=== PATIENT | female | born 1950 | race Caucasian/White ===

== ENCOUNTER 2018-08-26 10:29 | Outpatient (CLI) | payer MEDICARE, OTHER, SELFPAY ==
[2018-08-26 13:01] LABS: ALT 23 U/L (12-78); AST 19 U/L (15-37); Albumin 3.8 g/dL (3.4-5.0); Alkaline Phosphatase 79 U/L (46-116); Anion Gap 6.6 mmol/L (3-11); BUN 19 mg/dL (7-18); Bilirubin, Total 0.7 mg/dL (0.2-1.0); CO2 28.4 mmol/L (21.0-32.0); CREATININE 0.85 mg/dL (0.55-1.02); Calcium 9.1 mg/dL (8.5-10.1); Chloride 103 mmol/L (98-107); Cholesterol 260 mg/dL (50-200); Glucose 96 mg/dL (70-100); HDL Cholesterol 74 mg/dL (40-60); LDL CHOLESTEROL 167 mg/dL (<100); Potassium 4.4 mmol/L (3.5-5.1); Sodium 138 mmol/L (136-145); TSH (W/Ref FT4) 1.05 uIU/mL (0.358-3.74); Total Protein 6.9 g/dL (6.4-8.2); Triglyceride 123 mg/dL (30-150)
== END 2018-08-26 10:49 ==
PROVIDERS: PCP Family Medicine; Visit Provider Family Medicine
DX: E03.9 Hypothyroidism, unspecified (principal); R53.83 Other fatigue; G89.4 Chronic pain syndrome
CPT/HCPCS: 36415; 80053; 80061; 83721; 84443

== ENCOUNTER 2020-02-24 15:41 | Outpatient (REF) | payer MEDICARE, OTHER, SELFPAY ==
[2020-02-24 17:09] LABS: Bilirubin Negative (Negative); Blood Moderate (Negative); Clarity Clear (Clear); Glucose Negative (Negative); Ketones Negative (Negative); Leukocyte Esterase Negative (Negative); Nitrite Negative (Negative); Specific Gravity >= 1.030 (1.005-1.025); Urobilinogen 0.2 EU/dL (Up TO 0.2); pH 5.5 (5-8)
[2020-02-24 17:49] LABS: Bacteria Negative HPF (Negative); C & S Indicated? C&S Done As Ordered; Casts Negative LPF (Negative); Crystals Mod Calcium Oxalate HPF (Negative); Epithelial Cells Negative HPF (Negative); Mucus Negative (Negative); RBC 20-50 HPF (0-2)
== END 2020-02-24 16:01 ==
LOC: LBN 15:41
PROVIDERS: PCP Family Medicine; Visit Provider Family Medicine
DX: R31.9 Hematuria, unspecified (principal)
CPT/HCPCS: 81003; 81015; 87086

== ENCOUNTER 2020-03-02 00:55 | Outpatient (CLI) | payer MEDICARE, OTHER, SELFPAY ==
--- NOTE | 2020-03-02 09:26 | DI.US_ITS ---
EXAM: US RENAL CLINICAL HISTORY: hematuria,R31.9 TECHNIQUE: Ultrasound performed using standard protocol. COMPARISON: US SOFT TISSUE UPPER/LOWER EXT US from 01/08/2017 FINDINGS: Kidneys are normal in size and shape. There is no evidence of hydronephrosis. There are a few nonsp ecific echogenic foci seen in both kidneys, however these are not confirmed as calculi, no twinkle ar tifact seen. Urinary bladder shows pre and postvoid volume 43 cc and 2 cc respectively. There is an echogenic foc us adjacent to the right ureteral orifice, right ureteral jet was observed as is the left ureteral je t. The echogenic focus appears to lie in the bladder wall, nonobstructing distal ureteral stone not entirely excluded but this may represent a bladder wall calcification or phlebolith. IMPRESSION: no evidence of urinary tract obstruction. No convincing renal calculi by ultrasound criteria. Echogenic focus adjacent to right ureterovesical junction, uncertain etiology, CT urogram suggested t o evaluate this finding and rule out nonobstructing ureteral calculus, particularly considering the h istory of hematuria. DATA REPOSITORY:
--- NOTE | 2020-03-02 09:32 | DI.RAD_ITS ---
EXAM: XR CHEST 2V PA LATERAL CLINICAL HISTORY: cough,R05 TECHNIQUE: COMPARISON: CR CHEST 2 VIEWS PA,LAT from 12/10/2010 FINDINGS: Right humeral head prosthesis noted. Heart is not enlarged. The lungs appear clear. There may be mild pulmonary hyperinflation. No pleural effusion seen. IMPRESSION: No evidence of acute process.
== END 2020-03-02 01:15 ==
PROVIDERS: PCP Family Medicine; Visit Provider Family Medicine
DX: R05 Cough (principal); R31.9 Hematuria, unspecified; N32.89 Other specified disorders of bladder
CPT/HCPCS: 76770; 71046

== ENCOUNTER → 2020-03-30 10:36 | Outpatient (BNVA) | payer MEDICARE, OTHER, SELFPAY | PROVIDERS: PCP Family Medicine; Referring Provider Family Medicine; Visit Provider Nurse Practitioner Gerontology | DX: R31.9 Hematuria, unspecified (principal); I10 Essential (primary) hypertension | CPT/HCPCS: 81003; 99203; 99214 ==

== ENCOUNTER 2020-04-18 01:44 | Outpatient (CLI) | payer MEDICARE, OTHER, SELFPAY ==
[2020-04-18 13:51] LABS: ALT 23 U/L (14-59); AST 25 U/L (15-37); Albumin 3.9 g/dL (3.4-5.0); Alkaline Phosphatase 75 U/L (46-116); Anion Gap 7.2 mmol/L (3-11); BUN 21 mg/dL (7-18); Bilirubin, Total 0.7 mg/dL (0.2-1.0); CO2 28.8 mmol/L (21.0-32.0); CREATININE 0.91 mg/dL (0.55-1.02); Calcium 9.5 mg/dL (8.5-10.1); Calculated LDL 134 mg/dL (<100); Chloride 100 mmol/L (98-107); Cholesterol 235 mg/dL (<200); Glucose 92 mg/dL (74-106); HDL Cholesterol 87 mg/dL (40-60); Sodium 136 mmol/L (136-145); Total Protein 7.2 g/dL (6.4-8.2); Triglyceride 74 mg/dL (<150)
[2020-04-18 13:59] LABS: TSH (W/Ref FT4) 6.99 uIU/mL (0.36-3.74)
[2020-04-18] MEDS: Normal Saline - Diluent 50 ML VIAL IV (14:15)
[2020-04-18] MEDS: Omnipaque 350 MG/ML 100 ML BTL IJ (14:15)
[2020-04-18 14:17] LABS: FREE T4 1.13 ng/dL (0.76-1.46)
--- NOTE | 2020-04-18 14:23 | DI.CT_ITS ---
EXAM: CT ABDOMEN PELVIS WO/W CLINICAL HISTORY: gross hematuria, R31.9 TECHNIQUE: Imaging Protocol: Axial computed tomography images with coronal and sagittal reformatted images were created and reviewed CONTRAST MATERIAL: Intravenous: Omnipaque 350 Contrast volume:structured data in ml Oral: yes / no COMPARISON: CT RENAL COLIC WO CONTRAST from 10/22/2011 CT ABD PELVIS WO CONTRAST from 11/08/2011 FINDINGS: ABDOMEN: Lung Bases: There is diffuse thickening of the distal esophagus and a small hiatal hernia. There is scarring in the right lung base. Liver: Normal density. There is a 0.8 cm round hypodensity in the subcapsular region of the right lob e of the liver. It is too small for further characterization but may represent a small cyst. Portal, Superior Mesenteric, and Splenic Veins: Unremarkable. Gallbladder and Biliary Tract: Cholelithiasis. No biliary ductal dilatation. Pancreas: Normal density, no abnormal calcifications or inflammatory process. Spleen: Normal. Adrenals: No masses seen. Kidneys: Normal size, contour and axis. There is a 3 mm nonobstructing stone in the lower pole of the right kidney. There are three 2 mm nonobstructing stones in the left kidney. No masses seen. Abdominal Aorta: Abdominal portion non-dilated. Atherosclerosis. Bowel: No obstruction or bowel wall thickening. Appendix is unremarkable. Colonic diverticulosis is p resent but no evidence of acute diverticulitis. Peritoneal Cavity: No ascites, collection or mesenteric inflammatory response. Lymph Nodes: Within normal limits. Bones: Degenerative changes are seen in the spine. Soft Tissues: Unremarkable. PELVIS: Bladder: Symmetric distention, no gross wall thickening. Reproductive Organs: Unremarkable as visualized. Lymph Nodes: Within normal limits. Bones: Degenerative changes are seen in the spine. IMPRESSION: 1. Bilateral nephrolithiasis. No hydronephrosis. 2. Cholelithiasis. No biliary ductal dilatation. 3. Colonic diverticulosis but no evidence of acute diverticulitis. 4. Diffuse thickening of the distal esophagus with a small hiatal hernia. Differential should includ e infectious or inflammatory causes. Neoplasm cannot be excluded. Further imaging may be warranted RADIATION DOSE DELIVERED: Total DLP Total DLP DATA REPOSITORY: All CT scans at this facility are submitted to the National Radiology Data Registry (NRDR) Dose Index Registry (DIR) with the [employer] (A[employer]). RADIATION OPTIMIZATION: All CT scans at this facility use at least one of these dose optimization te chniques: automated exposure control; mA and/or kV adjustment per patient size (includes targeted exa ms where dose is matched to clinical indication); or iterative reconstruction.
[2020-04-18 14:24] LABS: ESR 15 mm/hr (0-30)
== END 2020-04-18 02:04 ==
PROVIDERS: PCP Family Medicine; Visit Provider Nurse Practitioner Gerontology
DX: R31.0 Gross hematuria (principal); K44.9 Diaphragmatic hernia without obstruction or gangrene; K22.8 Other specified diseases of esophagus; K80.20 Calculus of gallbladder without cholecystitis without obstruction; N20.0 Calculus of kidney; K57.32 Diverticulitis of large intestine without perforation or abscess without bleeding; I10 Essential (primary) hypertension
CPT/HCPCS: 80053; 80061; 85652; 74178; 84439; 84443; J3490

== ENCOUNTER → 2020-05-09 09:32 | Outpatient (BNVA) | payer MEDICARE, OTHER, SELFPAY | PROVIDERS: PCP Family Medicine; Referring Provider Family Medicine; Visit Provider Nurse Practitioner Gerontology | DX: N20.0 Calculus of kidney (principal) | CPT/HCPCS: 99213 ==

== ENCOUNTER 2021-03-05 10:38 | Outpatient (REF) | payer MEDICARE, OTHER, SELFPAY ==
[2021-03-05 13:58] LABS: ESR 34 mm/hr (0-30)
[2021-03-05 14:19] LABS: ALT 22 U/L (14-59); AST 21 U/L (15-37); Albumin 3.8 g/dL (3.4-5.0); Alkaline Phosphatase 77 U/L (46-116); BUN 32 mg/dL (7-18); Bilirubin, Total 0.6 mg/dL (0.2-1.0); CREATININE 0.9 mg/dL (0.55-1.02); Calcium 9.9 mg/dL (8.5-10.1); Chloride 102 mmol/L (98-107); Glucose 84 mg/dL (74-106); Potassium 4.2 mmol/L (3.5-5.1); Sodium 138 mmol/L (136-145); TSH (W/Ref FT4) 1.05 uIU/mL (0.36-3.74); Total Protein 7.1 g/dL (6.4-8.2)
== END 2021-03-05 10:39 | disposition home or self-care (01) ==
LOC: LBN 10:38
PROVIDERS: PCP Family Medicine; Visit Provider Family Medicine
DX: I10 Essential (primary) hypertension (principal); E03.9 Hypothyroidism, unspecified; M25.50 Pain in unspecified joint
CPT/HCPCS: 80053; 85652; 84443

== ENCOUNTER 2021-03-29 01:57 | Outpatient (CLI) | payer MEDICARE, OTHER, SELFPAY ==
--- NOTE | 2021-03-29 06:30 | DI.MAMMO_ITS ---
Exam(s) MAMMO SCREENING EXAM: MAMMO SCREENING CLINICAL HISTORY: screening,Z12.39 TECHNIQUE: Mammograms were interpreted according to the usual protocol including computer analysis w [employer] CAD system, tomosynthesis and C-view imaging. COMPARISON: 2010 through 2017 FINDINGS: The breasts are composed of scattered fibroglandular densities, Breast Density category B. No suspicious masses or suspicious microcalcifications are seen. No skin thickening or abnormal axillary lymph nodes are seen. There has been no significant change from prior exams. IMPRESSION: BI-RADS Category 1, Negative mammogram Yearly screening mammography is recommended. Breast Density - Category B, scattered fibroglandular densities. A negative radiographic report should not delay biopsy if a dominant or clinically suspicious mass is present. Up to ten percent of cancers are not identified on mammography. A negative report may reinforce clinical impression. Adenosis and dense breasts may obscure an underlying neoplasm. False positive reports average 6 to 10%. Patient will receive a letter notifying them of these results.
== END 2021-03-29 02:17 ==
PROVIDERS: PCP Family Medicine; Visit Provider Family Medicine
DX: Z12.31 Encounter for screening mammogram for malignant neoplasm of breast (principal)
CPT/HCPCS: 77063; 77067

== ENCOUNTER 2021-08-15 04:46 | Outpatient (CLI) | payer MEDICARE, OTHER, SELFPAY ==
[2021-08-15 10:02] LABS: TSH (W/Ref FT4) 1.56 uIU/mL (0.36-3.74)
[2021-08-16 10:26] LABS: Lyme Ab w Rflx to Lyme Confirm Negative (Negative)
[2021-08-17 15:56] LABS: Anaplasma phagocytophilum Negative (Negative); B. miyamotoi PCR Negative (Negative); Babesia divergens/MO-1 Negative (Negative); Babesia duncani Negative (Negative); Babesia microti Negative (Negative); Ehrlichia chaffeensis Negative (Negative); Ehrlichia ewingii/canis Negative (Negative); Ehrlichia muris eauclairensis Negative (Negative)
== END 2021-08-15 04:47 | disposition home or self-care (01) ==
LOC: LBO 04:50
PROVIDERS: PCP Family Medicine; Visit Provider Family Medicine
DX: I10 Essential (primary) hypertension (principal); M25.59 Pain in other specified joint
CPT/HCPCS: 36415; 87798; 84443; 86618

== ENCOUNTER 2022-05-16 09:06 | Outpatient (CLI) | payer MEDICARE, OTHER, SELFPAY ==
[2022-05-16 14:30] LABS: ALT 19 U/L (14-59); AST 18 U/L (15-37); Albumin 3.4 g/dL (3.4-5.0); Alkaline Phosphatase 85 U/L (46-116); Anion Gap 8.6 mmol/L (3-11); BUN 25 mg/dL (7-18); Bilirubin, Total 0.4 mg/dL (0.2-1.0); CO2 27.4 mmol/L (21.0-32.0); CREATININE 1.3 mg/dL (0.55-1.02); Calcium 8.8 mg/dL (8.5-10.1); Chloride 99 mmol/L (98-107); Estimated GFR 40.15 (mL/min/1.73m2); Glucose 132 mg/dL (74-106); Potassium 3.9 mmol/L (3.5-5.1); Sodium 135 mmol/L (136-145); Total Protein 7.3 g/dL (6.4-8.2)
== END 2022-05-16 09:07 | disposition home or self-care (01) ==
LOC: LBO 09:08
PROVIDERS: PCP Family Medicine; Visit Provider Family Medicine
DX: I10 Essential (primary) hypertension (principal); U07.1 COVID-19
CPT/HCPCS: 36415; 80053

== ENCOUNTER 2023-02-17 10:08 | Outpatient (CLI) | payer MEDICARE, OTHER, SELFPAY ==
--- NOTE | 2023-02-17 08:21 | DI.RAD_ITS ---
Exam(s) XR SHOULDER LT COMPLETE 2+V EXAM: XR SHOULDER LT COMPLETE 2+V CLINICAL HISTORY: left shoulder pain. TECHNIQUE: 2D digital imaging was performed of the left shoulder. Three images were obtained. AP, Grashey, Y-view and axillary views were obtained. COMPARISON: CR LEFT SHOULDER COMPLETE from 05/10/2013 FINDINGS: BONES: No acute fracture is present. No bony destructive lesion is seen. JOINTS: No dislocation present. Marked degenerative changes are seen at the glenohumeral joint with j oint space narrowing and spurring of on the humeral head. The acromioclavicular joint appears unrema rkable. SOFT TISSUE: Dystrophic calcifications are seen adjacent to the humeral head on the axillary view. IMPRESSION: Marked degenerative changes of the glenohumeral joint. DATA REPOSITORY: RADIATION DOSE DELIVERED:
== END 2023-02-17 10:09 | disposition home or self-care (01) ==
LOC: DIORS 10:08
PROVIDERS: PCP Family Medicine; Referring Provider Family Medicine; Visit Provider Student in an Organized Health Care Education/Training Program
DX: M19.012 Primary osteoarthritis, left shoulder (principal)
CPT/HCPCS: 99214; 73030

== ENCOUNTER 2023-02-27 02:25 | Outpatient (CLI) | payer MEDICARE, OTHER, SELFPAY ==
[2023-02-27 13:53] LABS: ALT 24 U/L (14-59); AST 19 U/L (15-37); Albumin 3.8 g/dL (3.4-5.0); Alkaline Phosphatase 90 U/L (46-116); BUN 35 mg/dL (7-18); Bilirubin, Total 0.4 mg/dL (0.2-1.0); CREATININE 1.1 mg/dL (0.55-1.02); Calcium 9.9 mg/dL (8.5-10.1); Chloride 102 mmol/L (98-107); Estimated GFR 53.06 (mL/min/1.73m2); Glucose 102 mg/dL (74-106); Potassium 4.4 mmol/L (3.5-5.1); Sodium 140 mmol/L (136-145); TSH (W/Ref FT4) 0.85 uIU/mL (0.36-3.74); Total Protein 7.6 g/dL (6.4-8.2)
== END 2023-02-27 02:26 | disposition home or self-care (01) ==
LOC: LBO 02:25
PROVIDERS: PCP Family Medicine; Visit Provider Family Medicine
DX: E03.9 Hypothyroidism, unspecified (principal); I10 Essential (primary) hypertension; M19.012 Primary osteoarthritis, left shoulder
CPT/HCPCS: 26011; 36415; 80053; 84443; J1040

== ENCOUNTER 2023-03-28 11:10 | Outpatient (CLI) | payer MEDICARE, OTHER, SELFPAY ==
--- NOTE | 2023-03-28 11:00 | DI.RAD_ITS ---
Exam(s) XR ANKLE LT 2V EXAM: XR ANKLE LT 2V CLINICAL HISTORY: left ankle arthritis f/u TECHNIQUE: 2D digital imaging was performed of the left ankle. Two images were obtained. AP and la teral. Views were obtained. COMPARISON: CR LEFT ANKLE COMPLETE from 05/18/2015 FINDINGS: BONES: No acute fracture is present. No bony destructive lesion is seen. Tiny well corticated osseous densities are seen at the tips of both the medial lateral malleoli which are old. There is a spur a t the plantar surface of the calcaneus. JOINTS:There are marked degenerative changes of the tibial talar joint again seen. Findings are carl acterized by joint space narrowing and bony hypertrophy. There is loss of the tibial talar joint wit h flattening of the articular surfaces particularly of the distal tibia medial malleolus and talar do me. SOFT TISSUE: There is again seen a bony density posterior to the ankle which is unchanged. IMPRESSION: Marked degenerative changes seen of the left ankle. DATA REPOSITORY: RADIATION DOSE DELIVERED:
== END 2023-03-28 11:11 | disposition home or self-care (01) ==
LOC: DIORS 11:10
PROVIDERS: PCP Family Medicine; Referring Provider Family Medicine; Visit Provider Student in an Organized Health Care Education/Training Program
DX: M19.072 Primary osteoarthritis, left ankle and foot (principal)
CPT/HCPCS: 20605; 73600; J1030

== ENCOUNTER 2023-04-18 00:15 | Outpatient (CLI) | payer MEDICARE, OTHER, SELFPAY ==
--- NOTE | 2023-04-18 06:30 | DI.RAD_ITS ---
Exam(s) XR CERVICAL SPINE COMP 4-5V EXAM: XR CERVICAL SPINE COMP 4-5V CLINICAL HISTORY: neck pain,m54.2. TECHNIQUE: 2D digital imaging was performed. COMPARISON: No exams were available for comparison FINDINGS: BONES: No fracture or destructive lesion. Vertebral bodies are unremarkable. DISKS: Mild narrowing of the C4-5 disc space. Small endplate osteophytes projecting anteriorly. Sev ere narrowing of the C5-6 and C6-7 disc spaces with anteriorly projecting osteophytes. Facet degener ative changes present. Mild left neural foraminal narrowing at C 3 4 mainly secondary to osteophyte encroachment. Right neural foraminal not optimally profiled however this is a suggestion of narrowin g at the C3-4 and C4-5 levels. ALIGNMENT: Cervical spinal alignment is within normal limits. The odontoid and atlantoaxial articulat ions are normal. SOFT TISSUE: Normal. The lung apices are clear. IMPRESSION: Degenerative disc spaces and facet degenerative changes. DATA REPOSITORY: RADIATION DOSE DELIVERED:
--- NOTE | 2023-04-18 06:30 | DI.RAD_ITS ---
Exam(s) XR LUMBAR SPINE COMPLETE EXAM: XR LUMBAR SPINE COMPLETE CLINICAL HISTORY: low back pain, jhon on rt, m54.50. TECHNIQUE: 2D digital imaging was performed. Five views. COMPARISON: No exams were available for comparison FINDINGS: No compression fractures. Degenerative disc changes in the lower thoracic region. Degenerative disc changes throughout the lumbar region with greatest narrowing at L3-4 and L5-S1. There are prominent facet degenerative changes throughout. No there is a mild degenerative scoliosis. IMPRESSION: Degenerative disc changes and facet degenerative changes. Findings greatest at L3-4 and L5-S1. DATA REPOSITORY: RADIATION DOSE DELIVERED:
== END 2023-04-18 00:35 ==
LOC: DI 00:16
PROVIDERS: PCP Family Medicine; Visit Provider Family Medicine
DX: M47.15 Other spondylosis with myelopathy, thoracolumbar region (principal)
CPT/HCPCS: 72050; 72110

== ENCOUNTER 2023-04-28 01:47 | Outpatient (CLI) | payer MEDICARE, OTHER, SELFPAY ==
--- NOTE | 2023-04-28 07:45 | DI.MAMMO_ITS ---
Exam(s) MAMMO SCREENING EXAM: MAMMO SCREENING CLINICAL HISTORY: SCREENING, Z12.39. TECHNIQUE: Bilateral full field digital CC and MLO mammographic images were obtained with 3D tomosyn thesis and utilizing computer aided detection (CAD). COMPARISON: Prior mammograms were reviewed. FINDINGS: There has been no significant change in the appearance and distribution of the fibroglandular tissue. No CAD designations. No new significant findings in the left breast. In the right breast on the CC view there is an asymmetric density measuring 5 x 3 millimeters located slightly medial of center approximately 4 cm in the nipple, not evident on prior mammograms. Spot c ompression view recommended There is no significant architectural distortion nor skin thickening-retraction. IMPRESSION: 1. No radiographic evidence of malignancy in left breast. 2. Asymmetric density-possible nodule in the right breast as described above. Spot compression view and ultrasound recommended. BI-RADS Category 0 - Assessment Incomplete: Need additional imaging evaluation Breast Density - Category B - Scattered areas of fibroglandular density Breast density Category C or D implies that the patient has dense breast tissue. Dense breast tissue can make it harder to find cancer on a mammogram. Dense breast tissue is also associated with an incr eased risk of breast cancer. This information about the result of the mammogram report was provided to the patient to raise their awareness. Use this report when you speak with the patient about their risks for breast cancer, which includes their family history. At that time, you may recommend additional screening tests (Ultrasoun d or MRI) as these tests may add significant information. A negative radiographic report should not delay biopsy if a dominant or clinically suspicious mass is present. Up to ten percent of cancers are not identified on mammography. A negative report may reinforce clinical impression. Adenosis and dense breasts may obscure an underlying neoplasm. False positive reports average 6 to 10%. Patient will receive a letter notifying them of these results.
== END 2023-04-28 02:07 ==
LOC: DI 01:47
PROVIDERS: PCP Family Medicine; Visit Provider Family Medicine
DX: Z12.31 Encounter for screening mammogram for malignant neoplasm of breast (principal)
CPT/HCPCS: 77063; 77067

== ENCOUNTER 2023-04-30 09:35 | Outpatient (CLI) | payer MEDICARE, OTHER, SELFPAY ==
--- NOTE | 2023-04-30 | DI.MAMMO_ITS ---
Exam(s) MG MAMMO SCREEN CALL BACK UNI US BREAST RT COMPLETE EXAM: MAMMO SCREEN CALL BACK UNI-RIGHT AND COMPLETE RIGHT BREAST ULTRASOUND CLINICAL HISTORY: F/U MAMMO, R92.8, ASYMMETRIC DENSITY. TECHNIQUE: Unilateral RIGHT BREAST spot mammographic images obtained with 3D tomosynthesisand utiliz ing computer aided detection (CAD). . Complete RIGHT breast Ultrasound was also performed, including all 4 quadrants, the retroareolar hamlet on, and the ipsilateral axilla. COMPARISON: Prior mammograms were reviewed. This additional imaging was performed due to findings described on the recent screening mammogram of 04/28/2023. FINDINGS: DIAGNOSTIC RIGHT BREAST MAMMOGRAM: Additional mammographic views performed todayrender this area less concerning. COMPLETE RIGHT BREAST ULTRASOUND: Ultrasound performed today reveals no ultrasound finding corresponding to the finding on the mammogra m, further evidence benign period At the 12 o'clock position there is a hyperechoic area measuring approximately 1.0 x 0.6 cm which has the appearance of probable intramammary lipoma. There is a duct running through this region. Color flow imaging does not reveal hyperemia at this level. Scanning of the ipsilateral axilla reveals no significant adenopathy. IMPRESSION: 1. No radiographic evidence of malignancy in the right breast. 2. Benign-appearing incidental right breast finding at 12 o'clock position seen on ultrasound. Appropriate follow-up is repeat right breast mammogram and ultrasound in 6 months, with earlier imag ing if a self detected breast changes noted.. The patient was informed of these findings and recommendations by myself prior to leaving the [facility] ent today. BI-RADS Category 3 - 6 month - Probably Benign Finding: Recommend follow-up mammography in 6 months Breast Density - Category C - Heterogeneously dense Breast density Category C or D implies that the patient has dense breast tissue. Dense breast tissue can make it harder to find cancer on a mammogram. Dense breast tissue is also associated with an incr eased risk of breast cancer. This information about the result of the mammogram report was provided to the patient to raise their awareness. Use this report when you speak with the patient about their risks for breast cancer, which includes their family history. At that time, you may recommend additional screening tests (Ultrasoun d or MRI) as these tests may add significant information. A negative radiographic report should not delay biopsy if a dominant or clinically suspicious mass is present. Up to ten percent of cancers are not identified on mammography. A negative report may reinforce clinical impression. Adenosis and dense breasts may obscure an underlying neoplasm. False positive reports average 6 to 10%. Patient will receive a letter notifying them of these results.
== END 2023-04-30 09:55 ==
LOC: DI 09:35
PROVIDERS: PCP Family Medicine; Visit Provider Family Medicine
DX: Z12.31 Encounter for screening mammogram for malignant neoplasm of breast (principal); R92.8 Other abnormal and inconclusive findings on diagnostic imaging of breast; D24.1 Benign neoplasm of right breast
CPT/HCPCS: 76642; 77063; 77067

== ENCOUNTER 2023-08-12 03:02 | Outpatient (CLI) | payer MEDICARE, OTHER, SELFPAY ==
[2023-08-12 09:34] LABS: HCT 39.2 % (36.0-46.0); MCH 28.7 pg (27.0-33.0); MCHC 33.2 % (32.0-36.0); MCV 87 fL (80-95); MPV 8.9 fL (8.0-11.0); Platelet Count 350 10^3/uL (130-400); RBC 4.53 10^6/uL (3.93-5.22); RDW 12.5 % (11.7-14.6); RDW-SD 39.7 fL; WBC 5.14 10^3/uL (4.4-10.8)
[2023-08-12 09:55] LABS: Bilirubin Negative (Negative); Blood Negative (Negative); Clarity Clear (Clear); Glucose Negative (Negative); Ketones Negative (Negative); Leukocyte Esterase Negative (Negative); Nitrite Negative (Negative); Specific Gravity 1.025 (1.005-1.025); Urobilinogen 0.2 mg/dL (Up to 0.2)
[2023-08-12 10:12] LABS: Bacteria Rare HPF (Negative); C & S Indicated? No; Casts 3-5 Hyaline LPF (Negative); Crystals Negative HPF (Negative); Epithelial Cells Rare HPF (Negative); Mucus Trace (Negative); RBC Negative HPF (0-2); WBC Negative HPF (0-5)
[2023-08-12 10:45] LABS: ALT 19 U/L (14-59); AST 17 U/L (15-37); Albumin 3.7 g/dL (3.4-5.0); Alkaline Phosphatase 81 U/L (46-116); Anion Gap 7.5 mmol/L (3-11); BUN 27 mg/dL (7-18); Bilirubin, Total 0.5 mg/dL (0.2-1.0); CO2 30.5 mmol/L (21.0-32.0); CREATININE 1.1 mg/dL (0.55-1.02); Calcium 10.2 mg/dL (8.5-10.1); Chloride 104 mmol/L (98-107); Estimated GFR 52.73 (mL/min/1.73m2); Glucose 88 mg/dL (74-106); Potassium 3.9 mmol/L (3.5-5.1); Sodium 142 mmol/L (136-145); TSH (W/Ref FT4) 0.39 uIU/mL (0.36-3.74); Total Protein 7.6 g/dL (6.4-8.2); Vitamin B12 390 pg/mL (193-986)
== END 2023-08-12 03:03 | disposition home or self-care (01) ==
LOC: LBO 03:02
PROVIDERS: PCP Family Medicine; Visit Provider Family Medicine
DX: E03.9 Hypothyroidism, unspecified (principal); E80.6 Other disorders of bilirubin metabolism; M06.9 Rheumatoid arthritis, unspecified; R53.83 Other fatigue
CPT/HCPCS: 36415; 80053; 85027; 81003; 81015; 82607; 84443

== ENCOUNTER → 2024-02-16 05:04 | Outpatient (CLI) | payer MEDICARE, OTHER, SELFPAY ==
--- NOTE | 2024-02-16 07:45 | DI.MAMMO_ITS ---
Exam(s) MG MAMMO DIAGNOSTIC UNI US BREAST RT COMPLETE EXAM: MG MAMMO DIAGNOSTIC UNI-RIGHT AND COMPLETE RIGHT BREAST ULTRASOUND CLINICAL HISTORY: 6 mo f/u, f/u mammo,r92.8,z09, rt breast finding. TECHNIQUE: Unilateral RIGHT BREAST CC AND MLO mammographic images were obtained with 3D tomosynthes is technique and utilizing computer aided detection (CAD). COMPLETE RIGHT BREAST ULTRASOUND performed including all 4 quadrants well as the right axilla. COMPARISON: Prior mammograms were reviewed, the most recent being April 2023.. Prior ultrasound also reviewed. FINDINGS: DIAGNOSTIC RIGHT BREAST MAMMOGRAM: The previously described nodular density is actually less evident on the present study, further evide nce that it is benign. There are no new significant radiographic findings in the right breast. No n ew spiculated masses. No new microcalcification groups. No new architectural distortion nor skin th ickening-traction. COMPLETE RIGHT BREAST ULTRASOUND: The previously described hypoechoic area measuring 10 x 6 mm at 12 o'clock position is no longer seen . This implies that was probably a bruise which resolved. There are no solid or significant cystic lesions in all 4 quadrants. Scanning of the right axilla is negative for significant adenopathy. IMPRESSION: No radiographic evidence of malignancy in the right breast Negative complete right breast ultrasound Appropriate follow-up is to keep this patient yearly mammogram schedule. The patient was informed of the findings and follow-up recommendations myself prior to leaving the de partment today. BI-RADS Category 2 - Benign Findings Breast Density - Category B - Scattered areas of fibroglandular density Breast density Category C or D implies that the patient has dense breast tissue. Dense breast tissue can make it harder to find cancer on a mammogram. Dense breast tissue is also associated with an incr eased risk of breast cancer. This information about the result of the mammogram report was provided to the patient to raise their awareness. Use this report when you speak with the patient about their risks for breast cancer, which includes their family history. At that time, you may recommend additional screening tests (Ultrasoun d or MRI) as these tests may add significant information. A negative radiographic report should not delay biopsy if a dominant or clinically suspicious mass is present. Up to ten percent of cancers are not identified on mammography. A negative report may reinforce clinical impression. Adenosis and dense breasts may obscure an underlying neoplasm. False positive reports average 6 to 10%. Patient will receive a letter notifying them of these results.
== END ==
PROVIDERS: PCP Family Medicine; Visit Provider Family Medicine
DX: Z09 Encounter for follow-up examination after completed treatment for conditions other than malignant neoplasm (principal); R92.8 Other abnormal and inconclusive findings on diagnostic imaging of breast
CPT/HCPCS: 76642; 77061; 77065; G0279

== ENCOUNTER 2024-02-24 05:49 | Outpatient (CLI) | payer MEDICARE, OTHER, SELFPAY ==
[2024-02-24 14:20] LABS: MCH 28.3 pg (27.0-33.0); MCHC 32.5 % (32.0-36.0); MCV 87 fL (80-95); MPV 8.5 fL (8.0-11.0); Platelet Count 274 10^3/uL (130-400); RBC 4.59 10^6/uL (3.93-5.22); RDW 13.2 % (11.7-14.6); RDW-SD 42.3 fL; WBC 5.07 10^3/uL (4.4-10.8)
[2024-02-24 14:40] LABS: ALT 31 U/L (14-59); AST 24 U/L (15-37); Albumin 3.9 g/dL (3.4-5.0); Alkaline Phosphatase 89 U/L (46-116); Anion Gap 7.8 mmol/L (3-11); BUN 25 mg/dL (7-18); Bilirubin, Total 0.8 mg/dL (0.2-1.0); CO2 28.2 mmol/L (21.0-32.0); CREATININE 1.3 mg/dL (0.55-1.02); Calcium 9.7 mg/dL (8.5-10.1); Chloride 103 mmol/L (98-107); Estimated GFR 43.15 (mL/min/1.73m2); Glucose 90 mg/dL (74-106); Potassium 5.3 mmol/L (3.5-5.1); Sodium 139 mmol/L (136-145); TSH (W/Ref FT4) 3.23 uIU/mL (0.36-3.74); Total Protein 7.6 g/dL (6.4-8.2)
== END 2024-02-24 05:50 | disposition home or self-care (01) ==
LOC: LBO 05:49
PROVIDERS: PCP Family Medicine; Visit Provider Family Medicine
DX: E03.9 Hypothyroidism, unspecified (principal); I10 Essential (primary) hypertension; R10.9 Unspecified abdominal pain
CPT/HCPCS: 36415; 80053; 85027; 84443

== ENCOUNTER → 2024-02-25 04:55 | Outpatient (CLI) | payer MEDICARE, OTHER, SELFPAY ==
--- NOTE | 2024-02-25 08:30 | DI.US_ITS ---
Exam(s) US ABDOMEN EXAM: US ABDOMEN CLINICAL HISTORY: anorexia,R63.0 TECHNIQUE: Ultrasound abdomen performed using standard protocol. COMPARISON: CT CT ABDOMEN PELVIS WO/W from 04/18/2020 FINDINGS: Exam limited by patient body habitus. LIVER: Normal size and echogenicity. No focal liver lesions are seen. GALLBLADDER: Status post cholecystectomy. BILIARY SYSTEM: No intrahepatic or extrahepatic biliary ductal dilation. KIDNEYS: Left kidney partially obscured by bowel gas. Kidneys are symmetric in size. No evidence of renal calculi. No evidence of hydronephrosis. No renal mass or cyst identified. PANCREAS: Normal where visualized. Partially obscured. SPLEEN: Not enlarged. ABDOMINAL AORTA AND IVC: Visualized portions normal caliber. ASCITES: None seen. IMPRESSION: Status post cholecystectomy. No acute abnormality. DATA REPOSITORY:
== END ==
PROVIDERS: PCP Family Medicine; Visit Provider Family Medicine
DX: R63.0 Anorexia (principal)
CPT/HCPCS: 76700

== ENCOUNTER → 2024-02-26 14:36 | Outpatient (BNVA) | payer MEDICARE, OTHER, SELFPAY | PROVIDERS: PCP Family Medicine; Referring Provider Family Medicine; Visit Provider Physical Therapy Assistant | DX: Z12.11 Encounter for screening for malignant neoplasm of colon (principal); Z86.010 Personal history of colon polyps; Z80.0 Family history of malignant neoplasm of digestive organs ==

== ENCOUNTER 2024-03-04 05:23 | Outpatient (CLI) | payer MEDICARE, OTHER, SELFPAY ==
[2024-03-04 12:57] LABS: Anion Gap 9.1 mmol/L (3-11); BUN 26 mg/dL (7-18); CO2 26.9 mmol/L (21.0-32.0); CREATININE 1.3 mg/dL (0.55-1.02); Calcium 9.2 mg/dL (8.5-10.1); Chloride 105 mmol/L (98-107); Estimated GFR 43.15 (mL/min/1.73m2); Glucose 92 mg/dL (74-106); Sodium 141 mmol/L (136-145)
== END 2024-03-04 05:24 | disposition home or self-care (01) ==
LOC: LOS 05:24
PROVIDERS: PCP Family Medicine; Visit Provider Family Medicine
DX: I10 Essential (primary) hypertension (principal)
CPT/HCPCS: 36415; 80048

== ENCOUNTER 2024-03-09 09:07 | Day surgery (SDC) | payer MEDICARE, OTHER, SELFPAY ==
[2024-03-09 09:13] VITALS: BP 144/82; PULSE 83; RESP 18; TEMP 36.2; O2SAT 96
[2024-03-09] MEDS: Lactated Ringers 1,000 ML 80 ML IV (09:41)
--- NOTE | 2024-03-09 09:56 | W.COLOREPORT ---
Date of service: 03/09/24 Time of Service: 10:01 Colonoscopy Report Procedure Description: PROCEDURES PERFORMED: 1. Colonoscopy with hot snare polypectomy 2. Cold forceps polypectomy x 1 PREOPERATIVE DIAGNOSIS: Surveillance colonoscopy, colon polyps, family history colon cancer POSTOPERATIVE DIAGNOSIS: Colon polyps, mild pandiverticulosis SURGEON: Estefany Marsh MD INDICATION for procedure: The patient is a 73-year-old woman due for surveillance colonoscopy. She has no symptoms. Her mother, and both of her grandmothers, all had colon cancer. Her last colonoscopy had tubular adenoma removed. FINDINGS: In the transverse colon a 7-10 mm sessile polyp was removed with hot snare technique. In the rectum a small 2-3 mm sessile polyp was removed with cold forceps technique. The terminal ileum was normal. There are mild diverticular changes scattered throughout the entire colon as far proximal as the hepatic flexure. The sigmoid colon is somewhat fibrotic with limited compliance and does not distend well however there is no visible active inflammation here or stricture. SURVEILLANCE interval/FOLLOW-UP: Repeat in 3-5 years pending path results. If advanced?type of polyp on histology then 3 years. Otherwise 5 because of the family history. SPECIMENS: yes EBL: Minimal COMPLICATIONS: None QUALITY of prep: Excellent Procedure in detail: The patient gave written consent and was in agreement with the indications, the potential risks as well as the benefits of the procedure. She was turned from upper endoscopy (see separate procedure note) and anesthesia was continued and I started the colonoscopy portion of the procedure. Digital rectal and visual examination was performed and grossly within normal limits. A well-lubricated flexible colonoscope was then introduced and passed without any notable difficulty all the way to the cecum identified by the ileocecal valve and the appendiceal orifice. The scope was then slowly withdrawn with the above-noted findings. The patient tolerated the procedure well and was taken to the PACU in hemodynamically stable condition.
--- NOTE | 2024-03-09 10:03 | W.PM.ENDDOP ---
Date of service: 03/09/24 Time of Service: 10:03 Endoscopy Report PROCEDURE DESCRIPTION: PROCEDURES PERFORMED: 1. EGD with biopsies PREOPERATIVE DIAGNOSIS: Dysphagia POSTOPERATIVE DIAGNOSIS: Gastritis, small (1-2 cm) type I sliding hiatal hernia (Hill grade 1), esophageal stricture, possible early achalasia, possible eosinophilic esophagitis SURGEON: Estefany Marsh MD INDICATION FOR PROCEDURE: 73-year-old woman who has had dysphagia to liquids and solids for years. She has never had an EGD. She thinks that her swallowing issues are slowly worsening. FINDINGS: D2/D3 = normal D1/bulb = normal - no ulcers or inflammation Pylorus = normal Antrum = chronically?inflamed appearance, no ulcers, cold forceps biopsies were taken to rule out H. pylori routinely Body = chronically?inflamed appearance, biopsies taken with cold forceps technique routinely Fundus = normal, no polyps, no inflammation Cardia = normal Hiatus = small hiatal hernia. Type I sliding type. Sliding at most 1 cm, maybe 2. Hiatal defect Hill grade 1. Distal esophagus = NO inflammation, no visible esophagitis, no Chambers's. About 3 or 4 cm above the GE junction however, there is an esophageal stricture that appears functional. The esophagus proximal to it appears dilated although only mildly so. There is not a focal or non-? compliant stricture such as scar tissue or cancer. I took cold forceps biopsies in this region though the mucosa looks normal. Eosinophilic esophagitis needs to be ruled out. Mid esophagus = normal appearance, I took cold forceps biopsies here as well to rule out any eosinophilic esophagitis. Proximal esophagus/hypopharynx/vocal cords = normal SURVEILLANCE-INTERVAL/FOLLOW-UP: Pending biopsy results. Manometry and barium esophagram may be indicated if the biopsies do not show eosinophilic esophagitis. The stricture appears to be a functional motility?stricture rather than scar tissue. I wonder about early/developing achalasia Specimens: Yes EBL: Minimal COMPLICATIONS: None Procedure in detail: The patient gave written consent and was in agreement with the indications, the potential risks as well as the benefits of the procedure. The patient was taken to the endoscopy suite and laid on their left side. Anesthesia was given which was tolerated well. We performed a timeout and we are in agreement I started the procedure. A well-lubricated endoscope was gently and carefully advanced down the esophagus, into the stomach the scope was and through the pylorus into the duodenum. The scope was then slowly withdrawn with the above-noted findings/interventions. The patient tolerated the procedure well and was then turned for colonoscopy (see separate procedure note).
--- NOTE | 2024-03-09 10:04 | PDOC.DSDIS_ITS ---
Date of service: 03/09/24 Time of Service: 10:04 Discharge Plan Disposition Patient Disposition: Home Condition: Good Discharge Details Attending Provider: Sincere Marsh Primary Care Provider: Yudy Estevez Home Meds and New Rx's Prescriptions: No Action ibuprofen-acetaminophen [Advil Dual Action] 125-250 mg tablet 1 tab PO BID PRN oxycodone 5 mg tablet 5 mg PO QID MDD 4 PRN (Reason: pain) Qty: 28 0RF bupropion HCl 300 mg tablet extended release 24 hr 300 mg PO QAM Qty: 90 4RF bisacodyl [Dulcolax (bisacodyl)] 5 mg tablet,delayed release (DR/EC) 5 mg PO ONCE Qty: 4 0RF Rx Instructions: Take per colonoscopy instructions provided by ordering providers office polyethylene glycol 3350 17 gram/dose powder 17 g PO ONCE Qty: 238 0RF Rx Instructions: Take per colonoscopy instructions provided by ordering providers office NARCOTIC CONTRACT levothyroxine 125 mcg tablet 125 mcg PO DAILY valsartan 160 mg tablet 160 mg PO DAILY Qty: 90 6RF Discharge Instructions Additional Instructions: FINDINGS: On upper endoscopy, some very mild inflammation was seen but that was unrelated to your swallowing issues. Overall there is a tight spot in your esophagus but it is not from any obvious cause. There is no cancer visible or any other visible problem or inflammation in the area. It may be a muscular or neurological condition. Multiple biopsies were taken and the results of these biopsies will dictate next steps, if any. Some swallowing studies and some swallowing x-rays may need to be performed for further answers. On colonoscopy, a couple of polyps were removed. They are nothing to worry about. If they are an advanced type, then you would need to repeat another colonoscopy in 3 years however it is most likely that we will recommend repeating another colonoscopy in 5 years because of your family history. We will call you in a couple of weeks with those results. Please schedule a follow-up office visit with Dr. Marsh to discuss the EGD/s wallowing issues and next steps. Stand Alone Forms: Colonoscopy Post Instructions Activity:: Activity as Tolerated Diet:: As Tolerated
[2024-03-09 10:10] VITALS: BMI 28.4
--- NOTE | 2024-03-09 10:10 | W.ANESPRE ---
General Info Date of Service Date Performed: 03/09/24 Height: 5 ft 6 in Weight: 80 kg Body Mass Index (BMI): 28.4 Surgical Procedure: Operation Date: 03/09/24 10:35 Proposed Procedure Side Surgeon p Colonoscopy/Gastroscopy Sincere Marsh MD Meds Allergies and Home Medications Allergies Allergy/AdvReac Type Severity Reaction Status Date / Time sulfasalazine Allergy Intermediate Mouth Verified 03/09/24 09:32 sores; Rash doxycycline AdvReac Intermediate Unknown Verified 03/09/24 09:32 morphine AdvReac Intermediate VOMITING/DI Verified 03/09/24 09:32 ARRHEA Home Medication Medication Instructions Recorded Narcotic Contract 08/04/13 levothyroxine 125 mcg tablet 125 mcg PO DAILY 02/27/23 valsartan 160 mg tablet 160 mg PO DAILY #90 tabs 08/11/23 bupropion HCl 300 mg 24 hr tablet, 300 mg PO QAM #90 tabs 02/19/24 extended release ibuprofen 125 mg-acetaminophen 250 1 tab PO BID PRN 02/19/24 mg tablet (Advil Dual Action) oxycodone 5 mg tablet 5 mg PO QID PRN pain #28 tabs 02/19/24 bisacodyl 5 mg tablet,delayed 5 mg PO ONCE #4 tabs 02/26/24 release (Dulcolax (bisacodyl)) polyethylene glycol 3350 17 17 g PO ONCE #238 grams 02/26/24 gram/dose oral powder Current Visit Medications: Current Medications Generic Name Dose Route Start Last Admin Trade Name Freq PRN Reason Stop Dose Admin Ringer's Solution 1,000 mls @ 80 mls/hr 03/09/24 06:00 03/09/24 09:41 IV 03/09/24 23:59 80 mls/hr INFUSION SELIN Administration IV Miscellaneous Supplies 1 each 03/09/24 06:00 Iv Access IV 03/09/24 23:59 DIRECTED SELIN Sodium Chloride 0 ml 03/09/24 06:00 Normal Saline Flush 10 Ml Syr IV 03/09/24 23:59 PRN PRN Sodium Chloride 0 ml 03/09/24 06:00 Normal Saline 10 Ml Vial IJ 03/09/24 23:59 DIRECTED PRN Sterile Water 0 ml 03/09/24 06:00 Water,Injection,Sterile 10 Ml Vial IJ 03/09/24 23:59 DIRECTED PRN [facility] Active Problems Active Problems: Problem Status Onset Code Bilateral hand pain M79.641, M79.642 Muscle atrophy M62.50 Gallstone K80.20 Family hx of ALS (amyotrophic lateral sclerosis) Z82.0 Weakness R53.1 Thenar atrophy G56.00 Early satiety R68.81 Anorexia R63.0 Low back pain M54.50 Neck pain M54.2 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 COVID-19 U07.1 Arthralgia M25.50 Encounter for annual physical exam Z00.00 Bilateral kidney stones N20.0 Hematuria R31.9 Arthralgia M25.50 Arthritis of ankle, left 06/01/15 M19.072 Chronic pain syndrome G89.4 Depressive disorder F32.9 Fatigue 02/10/12 R53.83 Hyperbilirubinemia 11/16/09 E80.6 Hypothyroidism E03.9 Knee pain 01/17/05 M25.569 Mass of right knee 05/11/18 M25.861 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 Rheumatoid arthritis 02/10/12 M06.9 Shoulder pain M25.519 Sigmoid diverticulosis 12/08/17 K57.30 Tubular adenoma 12/08/17 D36.9 Essential hypertension 04/12/14 I10 Medical History Medical History Cough Abdominal pain Carpal tunnel syndrome S/P release Family history of colon cancer (11/10/17) HTN (hypertension) Chronic pain syndrome Hypothyroidism Rheumatoid arthritis Surgical History Surgical History Hx of cholecystectomy left knee revision arthroplasty ankle fusion Replacement of total knee joint (~2004) b/l SHOULDER SURGERY 2014 Open Carpal Tunnel release b/l Colonoscopy - MAC (12/08/17) Tobacco Smoking/Tobacco Use Status: Never Passive smoking exposure: Yes Second hand exposure: Yes Alcohol Alcohol Intake: current Alcohol intake frequency: a few times a week Alcohol type: beer and hard liquor Substance Use Substance use: Never Substance use type: does not use Vital Signs and Lab Results Vital Signs Most Recent Vital Signs in EMR: Most Recent Vital Signs Temp Pulse Resp BP Pulse Ox 36.2 C L 83 18 144/82 H 96 05/21/24 09:13 03/09/24 09:13 03/09/24 09:13 03/09/24 09:13 03/09/24 09:13 Lab Results Blood Type / Crossmatch: No Data to Display Complete Blood Count: White Blood Count 5.07 10^3/uL (4.4-10.8) 02/24/24 14:06 Red Blood Count 4.59 10^6/uL (3.93-5.22) 02/24/24 14:06 Hemoglobin 13.0 g/dL (11.2-15.7) 02/24/24 14:06 Hematocrit 40.0 % (36.0-46.0) 02/24/24 14:06 Platelet Count 274 10^3/uL (130-400) 02/24/24 14:06 Complete Metabolic Panel: Sodium 141 mmol/L (136-145) 03/04/24 10:46 Potassium 4.0 mmol/L (3.5-5.1) 03/04/24 10:46 Chloride 105 mmol/L (98-107) 03/04/24 10:46 Carbon Dioxide 26.9 mmol/L (21.0-32.0) 03/04/24 10:46 BUN 26 mg/dL (7-18) H 03/04/24 10:46 Creatinine 1.3 mg/dL (0.55-1.02) H 03/04/24 10:46 Est GFR (CKD-EPI 2020) 43.15 (mL/min/1.73m2) 03/04/24 10:46 Calcium 9.2 mg/dL (8.5-10.1) 03/04/24 10:46 Albumin 3.9 g/dL (3.4-5.0) 02/24/24 14:06 Glucose 92 mg/dL (74-106) 03/04/24 10:46 Liver Function Panel: Alanine Aminotransferase (ALT/SGPT) 31 U/L (14-59) 02/24/24 14:06 Aspartate Amino Transf (AST/SGOT) 24 U/L (15-37) 02/24/24 14:06 Coagulation Panel: No Data to Display Cardiac Panel: No Data to Display Arterial Blood Gas: No Data to Display Venous Blood Gas: No Data to Display Pancreas Panel: No Data to Display Thyroid Panel: Thyroid Stimulating Hormone (TSH) 3.23 uIU/mL (0.36-3.74) 02/24/24 14:06 Infectious Disease: No Data to Display Blood Cultures: No Data to Display Toxicology Panel: No Data to Display Anesthesia Assessment and Plan Anesthesia History Personal History: No History of Anesthesia Complications Family History: No Family History of Anesthesia Complications Exercise Tolerance Exercise Tolerance: Metabolic Equivalents>4 Pertinent Negatives Pertinent Negatives: No Symptoms of GERD Cardiac & Pulmonary Exam Cardiac Exam: Normal S1/S2 Heart Sounds Pulmonary Exam: Clear Bilateral Breath Sounds Implantable Cardiac Device Does patient have a Pacemaker or an ICD?: No Airway Exam Known Difficult Airway: No Mallampati Class: 2 Mouth Opening: Normal (> 3cm) Thyromental Distance: Greater than 3 cm Neck Range of Motion: Full ROM Neck Circumference: Normal Teeth Condition: Normal Dentition ASA Classification ASA Score: ASA 2 Emergency Case?: No NPO Status NPO Status: NPO Clears >2 hours, Solids >8 hours Anesthesia Plan Resuscitation Status: Full Code Anesthesia Technique: General Anesthesia Airway Planned: Natural Airway Monitors Used: Standard Monitors
--- NOTE | 2024-03-09 10:23 | BOWEL_PTH ---
PATIENT: Nelly Saxena LOC: [facility] U#:[id number] AGE/SX: 73/F ROOM: RE03/09/[address]: Sincere Marsh : 1950 BED: DIS: 03/09/2024 SPEC #: [id number] RECD: 03/09/24 12:00 STATUS: AD OLIVERA #: [id number] IAN: 03/09/24 10:[address]: Sincere Marsh DEPT: Surgical Specimen RECD BY: Kaylie Wilde ENTERED: 03/09/24 12:03 SP TYPE: Bowel OTHR DR: Yudy Estevez MD, DC Tissues: 1 - STOMACH BIOPSY 2 - STOMACH BIOPSY 3 - ESOPHAGUS BIOPSY 4 - ESOPHAGUS BIOPSY 5 - BIOPSY BOWEL 6 - BIOPSY BOWEL Procedures: GROSS AND MICRO LEVEL 4 Comments: [id number]
[2024-03-09 10:56] VITALS: BP 107/62; PULSE 75; RESP 16; TEMP 36.4; O2SAT 97
--- NOTE | 2024-03-09 11:32 | W.ANESPOSTOP ---
Postoperative Evaluation Date, Time and Location Date Performed: 03/09/24 Time Performed: 11:32 Patient Location: Day Surgery Unit Vital Signs Most Recent Imported Vital Signs: Most Recent Vital Signs Temp Pulse Resp BP Pulse Ox 36.4 C L 75 16 107/62 97 03/09/24 10:56 03/09/24 10:56 03/09/24 10:56 03/09/24 10:56 03/09/24 10:56 Pain Score Most Recent Pain Score: Most Recent Pain Score Pain Level 0 03/09/24 11:17 Assessment Mental Status: Awake (Alert & Oriented to Patient Baseline) Airway and Respiratory Function: Patent airway with normal (patient baseline) respiratory exam Cardiovascular Function: Hemodynamically Stable Hydration Status: Adequately Hydrated Nausea & Vomiting: No Nausea or Vomiting Pain: Pt. Denies Any Pain Peripheral Nerve Block: Patient did not receive a nerve block
== END 2024-03-09 11:45 | disposition home or self-care (01) ==
PROVIDERS: PCP Family Medicine; Visit Provider Student in an Organized Health Care Education/Training Program
PROC: (CPT 45385; principal; 2024-03-09 10:30)
DX: Z12.11 Encounter for screening for malignant neoplasm of colon (principal); I10 Essential (primary) hypertension; R13.10 Dysphagia, unspecified; K44.9 Diaphragmatic hernia without obstruction or gangrene; K63.5 Polyp of colon; K62.1 Rectal polyp; K31.9 Disease of stomach and duodenum, unspecified
CPT/HCPCS: 45385; 45380; 43239; 00123; 88305; J2001; J2704

== ENCOUNTER → 2024-03-11 04:32 | Outpatient (CLI) | payer MEDICARE, OTHER, SELFPAY ==
--- NOTE | 2024-03-11 07:15 | DI.RAD_ITS ---
Exam(s) XR ARTHRITIS SERIES EXAM: XR ARTHRITIS SERIES CLINICAL HISTORY: bl hand pain and weakness,m79.641,m79.642. TECHNIQUE: 2D digital imaging was performed. COMPARISON: No exams were available for comparison FINDINGS: Two views-PA and [place] views of both hands: No evidence of fractures. There is a is at the tri- scaphoid joints in both wrists. No prominent degenerative changes in the 1 st carpometacarpal joints. There is chondrocalcinosis evident in the triangular fibrocartilage bilat erally. There is significant degenerative changes in the 3rd metacarpophalangeal joint of the left hand. Isabela nt space narrowing and osteophytes evident at this level. There is also degenerative change in the 3 rd MCP joint of the opposite-right hand, slightly less. Also some degenerative change in the 2nd MCP joint of the right hand. There are no erosions the level the metacarpophalangeal joints. In the left hand there are degenerative changes in the DIP joints which are most prominent in the 2nd , 3rd, and 4th fingers. In the right hand there is significant degenerative change in the 5th proximal interphalangeal joint. At the level the DIP joints there also significant degenerative changes in 2nd, 3rd, and 4th DIP orestes ints; similar to the opposite side. IMPRESSION: Multilevel findings as above which are relatively symmetrical. There is relative sparing of the prox imal interphalangeal joints with the exception of the 5th finger of the right hand. DATA REPOSITORY: RADIATION DOSE DELIVERED:
== END ==
PROVIDERS: PCP Family Medicine; Visit Provider Family Medicine
DX: M79.641 Pain in right hand (principal); M79.642 Pain in left hand
CPT/HCPCS: 73120

== ENCOUNTER 2024-03-12 02:27 | Outpatient (CLI) | payer MEDICARE, OTHER, SELFPAY ==
[2024-03-12 13:02] LABS: HCT 38.9 % (36.0-46.0); HGB 12.7 g/dL (11.2-15.7); MCH 28.6 pg (27.0-33.0); MCHC 32.6 % (32.0-36.0); MCV 88 fL (80-95); MPV 9.2 fL (8.0-11.0); Platelet Count 256 10^3/uL (130-400); RBC 4.44 10^6/uL (3.93-5.22); RDW 13.1 % (11.7-14.6); RDW-SD 42.3 fL; WBC 4.01 10^3/uL (4.4-10.8)
[2024-03-12 13:05] LABS: ESR 7 mm/hr (0-30)
[2024-03-12 13:41] LABS: Vitamin B12 308 pg/mL (193-986)
[2024-03-12 13:50] LABS: C-Reactive Protein 0.91 mg/dL (<or=0.5)
[2024-03-16 14:08] LABS: Albumin 58.6 % (55.8-66.1); Albumin g/dL 3.9 g/dL (3.6-5.2); Total Protein 6.7 g/dL (6.3-8.2)
== END 2024-03-12 02:28 | disposition home or self-care (01) ==
LOC: LOS 02:28
PROVIDERS: PCP Family Medicine; Visit Provider Family Medicine
DX: M25.50 Pain in unspecified joint (principal); M62.50 Muscle wasting and atrophy, not elsewhere classified, unspecified site; D64.9 Anemia, unspecified
CPT/HCPCS: 36415; 85027; 85652; 82607; 84165; 86140

== ENCOUNTER → 2024-03-24 12:21 | Outpatient (BNVA) | payer MEDICARE, OTHER, SELFPAY | PROVIDERS: PCP Family Medicine; Referring Provider Family Medicine; Visit Provider Student in an Organized Health Care Education/Training Program | DX: Z48.815 Encounter for surgical aftercare following surgery on the digestive system (principal) | CPT/HCPCS: 99214 ==

== ENCOUNTER 2024-07-22 15:15 | Outpatient (CLI) | payer MEDICARE, OTHER, SELFPAY ==
[2024-07-22 23:13] LABS: Hepatitis C Ab w Rflx HCV PCR Negative (Negative)
== END 2024-07-22 15:16 | disposition home or self-care (01) ==
LOC: LBO 15:17
PROVIDERS: PCP Family Medicine; Visit Provider Family Medicine
DX: Z11.59 Encounter for screening for other viral diseases (principal); G56.01 Carpal tunnel syndrome, right upper limb; G56.21 Lesion of ulnar nerve, right upper limb; R26.89 Other abnormalities of gait and mobility
CPT/HCPCS: 36415; 86803; 95909; J1010

== ENCOUNTER 2024-08-06 08:59 | Outpatient (CLI) | payer MEDICARE, OTHER, SELFPAY ==
--- NOTE | 2024-08-06 08:15 | DI.RAD_ITS ---
Exam(s) XR SHOULDER RT COMPLETE 2+V EXAM: XR SHOULDER RT COMPLETE 2+V CLINICAL HISTORY: right shoulder pain. TECHNIQUE: 2D digital imaging was performed. Three images were obtained. Grashey and axillary views were obtained. COMPARISON: CR RIGHT SHOULDER COMPLETE from 01/06/2017 FINDINGS: BONES: There are stable post operative changes of a right shoulder replacement present. No fracture or dislocation. JOINTS: The orthopedic hardware is in good position. No evidence of hardware loosening. SOFT TISSUE: Normal. IMPRESSION: Stable right shoulder replacement. DATA REPOSITORY: RADIATION DOSE DELIVERED:
== END 2024-08-06 09:00 | disposition home or self-care (01) ==
LOC: DIORS 09:00
PROVIDERS: PCP Family Medicine; Referring Provider Family Medicine; Visit Provider Physician Assistant
DX: M25.511 Pain in right shoulder (principal); Z96.611 Presence of right artificial shoulder joint
CPT/HCPCS: 73030

== ENCOUNTER 2025-07-11 10:24 | Outpatient (CLI) | payer MEDICARE, OTHER, SELFPAY ==
[2025-07-11 14:29] LABS: ALT 23 U/L (14-59); AST 22 U/L (15-37); Albumin 4.0 g/dL (3.4-5.0); Alkaline Phosphatase 83 U/L (46-116); Anion Gap 6.9 mmol/L (3-11); BUN 26 mg/dL (7-18); Bilirubin, Total 0.8 mg/dL (0.2-1.0); CO2 29.1 mmol/L (21.0-32.0); Calcium 9.9 mg/dL (8.5-10.1); Chloride 103 mmol/L (98-107); Estimated GFR 58.39 (mL/min/1.73m2); Glucose 96 mg/dL (74-106); Potassium 4.2 mmol/L (3.5-5.1); Sodium 139 mmol/L (136-145); Total Protein 7.7 g/dL (6.4-8.2)
[2025-07-12 03:54] LABS: Vitamin B12 859 pg/mL (193-986)
[2025-07-12 15:17] LABS: Calculated LDL 159 mg/dL (<100); Cholesterol 267 mg/dL (<200); HDL Cholesterol 76 mg/dL (>or=50); Triglyceride 162 mg/dL (<150)
== END 2025-07-11 10:25 | disposition home or self-care (01) ==
PROVIDERS: PCP Family Medicine; Referring Provider Family Medicine; Visit Provider Family Medicine
DX: I10 Essential (primary) hypertension (principal); R79.89 Other specified abnormal findings of blood chemistry
CPT/HCPCS: 36415; 80053; 80061; 82607